=== PATIENT | male | born 1985 | race African-American/Black ===

== ENCOUNTER 2017-09-18 00:36 | Emergency (ER) | payer MEDICAID ==
[~2017-09-18] VITALS: Ht 175.3 cm; Wt 89.4 kg
[~2017-09-18 00:36] MED LIST: CEPHALEXIN500 MG PO; DOXYCYCLINE MO100 MG PO
[2017-09-18 00:49] VITALS: BP 109/67
[2017-09-18 01:30] VITALS: BP 109/67
--- NOTE | 2017-09-18 02:49 | Emergency Room Report ---
History of Present Illness General Chief Complaint: Medication Refill Source: Patient Present Illness HPI patient was angry about waiting in not getting a prescription, patient did not see a doctor for a full evaluation, patient eloped Allergies: Coded Allergies: No Known Allergies (Unverified , 10/03/12) Nursing Documentation-[facility] Past Medical History: No Stated History Physical Exam Vital Signs Date Time Temp Pulse Resp B/P (MAP) Pulse Ox O2 Delivery O2 Flow Rate FiO2 09/18/17 00:43 97.9 77 12 109/67 98 Room Air Medical Decision Making Last Vital Signs Date Time Temp Pulse Resp B/P (MAP) Pulse Ox O2 Delivery O2 Flow Rate FiO2 09/18/17 00:49 97.9 12 109/67 98 Room Air 09/18/17 00:43 77 Disposition: Ruth Ann Duque M.D. Sep 18, 2017 02:48
== END 2017-09-18 01:30 | disposition left against medical advice (07) ==
LOC: EMR 01:30
DX: Z53.21 Procedure and treatment not carried out due to patient leaving prior to being seen by health care provider (principal)
CPT/HCPCS: 99281